=== PATIENT | female | born 1985 ===

== ENCOUNTER 2019-09-03 17:15 | Inpatient (IN) | payer BC ==
[2019-09-03] MEDS ORDERED: Sodium Chloride 0.9% 10 ML SDV IV PRN (23:30)
[2019-09-03] MEDS ORDERED: Butorphanol 1 MG/ML SDV IVPUSH PRN (23:30)
[2019-09-03] MEDS ORDERED: Oxytocin/0.9 % Sodium Chloride 30 UNIT/500 ML BAG IV SCH ×2 (23:30)
[2019-09-03] MEDS ORDERED: Sodium Chloride 0.9% 2.5 ML Syringe FLUSH PRN (23:30)
[2019-09-03] MEDS ORDERED: Tranexamic Acid 1,000 MG in Sodium Chloride 0.9% 100 ML IV PRN (23:30)
[2019-09-03] MEDS ORDERED: Lidocaine 1% 50 ML MDV INJECT PRN (23:30)
[2019-09-03] MEDS ORDERED: Misoprostol 25 MCG (1/4 of 100 MCG) Tab VAG PRN ×2 (23:30)
[2019-09-03] MEDS ORDERED: Water For Irrigation,Sterile 1,000 ML Container IRR PRN (23:30)
[2019-09-03] MEDS ORDERED: Sodium Chloride 0.9% 10 ML Syringe FLUSH PRN (23:30)
[2019-09-03] MEDS ORDERED: Carboprost Tromethamine 250 MCG/1 ML Amp IM PRN (23:30)
[2019-09-03] MEDS ORDERED: Misoprostol 200 MCG Tab PO PRN (23:30)
[2019-09-03] MEDS ORDERED: Methylergonovine 0.2 MG/1 ML Amp IM PRN (23:30)
[2019-09-03] MEDS ORDERED: Ondansetron 4 MG/2 ML SDV IVPUSH PRN (23:30)
[2019-09-03] MEDS ORDERED: Nalbuphine 10 MG/1 ML Vial IVPUSH PRN (23:30)
[2019-09-03] MEDS ORDERED: Terbutaline 1 MG/ML SDV SUBCUT PRN (23:30)
[2019-09-04] MEDS: Lactated Ringers 1,000 ML IV SCH ×2 (00:24→09:11)
[2019-09-04] MEDS ORDERED: fentaNYL 100 MCG/2 ML SDV ONE ×2 (08:41→10:52)
[2019-09-04] MEDS ORDERED: Ropivacaine HCl/PF 100 ML ONE (08:41)
--- NOTE | 2019-09-04 09:00 | PCM.PREANE ---
Preanesthetic Assessment - Anesthesia/Transfusion/Family Hx Anesthesia History: Prior Anesthesia Without Reaction Other Type of Anesthesia Reaction Comment: problems waking up Family History of Anesthesia Reaction: No Transfusion History: No Prior Transfusion(s) - Physical Assessment NPO Status Date: 09/04/19 NPO Status Time: 08:15 Height: 1.68 m Weight: 103.419 kg ASA Class: 1 - Lab Values: Laboratory Last Values WBC 7.99 K/uL (4.0-11.0) 09/04/19 00:15 RBC 4.32 M/uL (4.30-5.90) 09/04/19 00:15 Hgb 12.1 g/dL (12.0-16.0) 09/04/19 00:15 Hct 37.3 % (36.0-46.0) 09/04/19 00:15 MCV 86.3 fL (80.0-98.0) 09/04/19 00:15 MCH 28.0 pg (27.0-32.0) 09/04/19 00:15 MCHC 32.4 g/dL (31.0-37.0) 09/04/19 00:15 RDW Std Deviation 44.1 fl (28.0-62.0) 09/04/19 00:15 RDW Coeff of Natacha 14 % (11.0-15.0) 09/04/19 00:15 Plt Count 308 K/uL (150-400) 09/04/19 00:15 MPV 10.10 fL (7.40-12.00) 09/04/19 00:15 Nucleated RBC % 0.0 /100WBC 09/04/19 00:15 Nucleated RBCs # 0 K/uL 09/04/19 00:15 POC Glucose 70 mg/dL (60-110) 09/04/19 07:25 Blood Type O POSITIVE 09/04/19 00:15 Antibody Screen NEGATIVE 09/04/19 00:15 - Allergies Allergies/Adverse Reactions: Allergies Allergy/AdvReac Type Severity Reaction Status Date / Time adhesive Allergy Blisters Verified 07/17/19 03:25 aspirin Allergy Difficulty Verified 07/17/19 03:25 Breathing caffeine Allergy Cannot Verified 07/17/19 03:25 [From Excedrin Extra Remember Strength] cat dander Allergy Difficulty Verified 07/17/19 03:25 Breathing cephalexin Allergy Anaphylactic Verified 07/17/19 03:25 Shock chlorhexidine Allergy Hives Verified 07/17/19 03:27 dichloralphenazone Allergy Hives Verified 07/17/19 03:25 [From Midrin] ibuprofen Allergy Stomach Verified 07/17/19 03:25 Upset iodine Allergy Hives Verified 07/17/19 03:25 isometheptene [From Midrin] Allergy Hives Verified 07/17/19 03:25 methocarbamol Allergy Hives Verified 07/17/19 03:25 morphine Allergy Difficulty Verified 07/17/19 03:25 Breathing omeprazole Allergy Headache Verified 07/17/19 03:25 oxybutynin Allergy Hives Verified 07/17/19 03:25 oxycodone [From Percocet] Allergy Hives Verified 07/17/19 03:25 Penicillins Allergy Anaphylactic Verified 07/17/19 03:25 Shock povidone-iodine Allergy Hives Verified 07/17/19 03:25 [From Betadine] raspberry Allergy Hives Verified 07/17/19 03:25 soap [From Betadine] Allergy Hives Verified 07/17/19 03:25 strawberry Allergy Hives Verified 07/17/19 03:25 tamsulosin Allergy Hives Verified 07/17/19 03:25 Tetanus Vaccines and Toxoid Allergy Rash Verified 07/17/19 03:25 tramadol Allergy Hives Verified 07/17/19 03:25 tree nut [Pecans] Allergy Anaphylactic Verified 07/17/19 03:25 Shock walnut Allergy Anaphylactic Verified 07/17/19 03:25 Shock - Acknowledgements Anesthesia Type Planned: Epidural Pt an Appropriate Candidate for the Planned Anesthesia: Yes Alternatives and Risks of Anesthesia Discussed w Pt/Guardian: Yes Pt/Guardian Understands and Agrees with Anesthesia Plan: Yes PreAnesthesia Questionnaire HEENT History: Reports: Impaired Vision Respiratory History: Reports: Asthma Other Respiratory History: couple years since last asthma attack Genitourinary History: Reports: Renal Calculus [employer] History: Reports: Musculoskeletal History: Reports: Fracture Other Musculoskeletal History: left elbow, left knee, lower right leg Neurological History: Reports: Headaches, Chronic, Head Trauma, Migraines Endocrine/Metabolic History: Reports: Diabetes, Gestational, Hyperthyroidism, Hypothyroidism - Infectious Disease History Infectious Disease History: Reports: Chicken Pox - Past Surgical History HEENT Surgical History: Reports: Other (See Below) Other HEENT Surgeries/Procedures: migraines from head trauma GI Surgical History: Reports: Cholecystectomy Neurological Surgical History: Reports: Other (See Below) Other Neurological Surgeries/Procedures: collapsed disc between L3-L4 - SUBSTANCE USE Smoking Status *Q: Former Smoker Tobacco Use Within Last Twelve Months: Cigarettes Second Hand Smoke Exposure: Yes Recreational Drug Use History: No - HOME MEDS Home Medications: Home Meds Pnv No.95/Ferrous Fum/Folic AC [ Tablet] 1 tab PO DAILY 07/17/19 [ History] Magnesium 1 tab PO PRN 08/27/19 [History] Melatonin [Melatin] 1 tab PO DAILY 08/27/19 [History] - CURRENT (IN HOUSE) MEDS Current Meds: Current Medications Butorphanol Tartrate (Stadol) 1 mg IVPUSH Q1H PRN PRN Reason: Pain Carboprost Tromethamine (Hemabate Ds) 250 mcg IM ASDIRECTED PRN PRN Reason: Post Hemorrhage Lactated Ringer's (Ringers, Lactated) 1,000 mls @ 150 mls/hr IV ASDIRECTED MONY Last Admin: 09/04/19 00:24 Dose: 150 mls/hr Oxytocin/Sodium Chloride (Oxytocin 30 Unit/500 Ml-Ns) 30 unit in 500 mls @ 500 mls/hr IV TITRATE MONY Oxytocin/Sodium Chloride (Oxytocin 30 Unit/500 Ml-Ns) 30 unit in 500 mls @ 2 mls/hr IV TITRATE MONY; Protocol Tranexamic Acid 1,000 mg/ (Sodium Chloride) 110 mls @ 660 mls/hr IV ONETIME PRN PRN Reason: Bleeding Lidocaine HCl (Xylocaine 1%) 50 ml INJECT ONETIME PRN PRN Reason: Laceration repair Methylergonovine Maleate (Methergine) 0.2 mg IM ASDIRECTED PRN PRN Reason: Post Hemorrhage Misoprostol (Cytotec) 200 mcg PO ONETIME PRN PRN Reason: Post Hemorrhage Misoprostol (Cytotec) 25 mcg VAG ONETIME PRN PRN Reason: Cervical Ripening Last Admin: 09/04/19 01:06 Dose: 25 mcg Misoprostol (Cytotec) 25 mcg VAG Q6H PRN PRN Reason: Cervical Ripening Nalbuphine HCl (Nubain) 10 mg IVPUSH Q1H PRN PRN Reason: Pain (severe 7-10) Ondansetron HCl (Zofran) 4 mg IVPUSH Q6H PRN PRN Reason: Nausea/Vomiting Sodium Chloride (Saline Flush) 10 ml FLUSH ASDIRECTED PRN PRN Reason: Keep Vein Open Sodium Chloride (Saline Flush) 2.5 ml FLUSH ASDIRECTED PRN PRN Reason: Keep Vein Open Sodium Chloride (Normal Saline) 10 ml IV ASDIRECTED PRN PRN Reason: IV Use Sterile Water (Sterile Water For Irrigation) 1,000 ml IRR ASDIRECTED PRN PRN Reason: delivery Terbutaline Sulfate (Brethine) 0.25 mg SUBCUT ASDIRECTED PRN PRN Reason: Tacysystole Discontinued Medications Fentanyl (Sublimaze) Confirm Administered Dose 100 mcg .ROUTE .STK-MED ONE Stop: 09/04/19 08:42 Ropivacaine (Naropin 0.2%) Confirm Administered Dose 100 mls @ as directed .ROUTE .STK-MED ONE Stop: 09/04/19 08:42
--- NOTE | 2019-09-04 09:04 | PCM.PRNOTE ---
- Free Text/Narrative Note: Anes Note Patient requests epidural for L&D. Sitting position. Level L3-L4 midline approach. Sterile technique, chloraprep scrub to lumbar area. Sterile fenestrated drape applied. Epidural space easily achieved single attempt with ease using CHRISTIANA technique. CHRISTIANA at 4 cm. cath threaded 5 cm with ease. Cath secured at 10 cm at skin using sterile clear adhesive dressing. 0847 Test 3 cc 1.5% lido with epi negative. 0850 Load 10 cc 0.2% ropiviciane with 1 mcg cc fentanyl in slow divided doses. 0855 Pump started with 90 cc same solution. Rate is 8 cc hr with 6 cc q 20 min prn bolus. Robyn well. 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
--- NOTE | 2019-09-04 11:27 | PCM.PRNOTE ---
- Free Text/Narrative Note: Anes Note Patient reports incomplete analgesia An excellent T10 sensory change was noted by assessment. However, the patient reports discomfort in the sacral area during contraction. A sitting dose of 100 mcg fentanyl and 6 cc 2% lido with epi was administered. Time with patient [id number] Marco Rivers CRNA
[2019-09-04] MEDS ORDERED: Acetaminophen 500 MG Tab PO ONE (13:22)
[2019-09-04] MEDS ORDERED: Bupivacaine 0.25% 10 ML SDV ONE (14:55)
--- NOTE | 2019-09-04 15:03 | PCM.SN.2 ---
- Free Text/Narrative Note: Making good progress, c/o increasing sacral pain. will give 10 ml of 0.25% bupivicaine.
[2019-09-04] MEDS ORDERED: Dextrose 5%-Ringers 1,000 ML IV SCH (15:30)
[2019-09-04] MEDS ORDERED: Dextrose 5%-Lactated Ringers 1,000 ML IV SCH (15:45)
[2019-09-04] MEDS ORDERED: Bupivicaine/fentaNYL/NS 250 ML ONE (16:13)
--- NOTE | 2019-09-04 16:26 | PCM.SN.2 ---
- Free Text/Narrative Note: bag nearing empty. Air in line alarm. Changed to new bag and new epidural tubing. Pt pushing. no comps.
--- NOTE | 2019-09-04 17:57 | PCM.DEL ---
L & D Note - General Info Date of Service: 09/04/19 Mother's Due Date: 09/08/19 - Delivery Note Labor: Augmented by Oxytocin, Induced by ARM Cervical Ripening Method: Misoprostil Delivery Outcome: Livebirth Delivery Method: Spontaneous Vaginal Delivery-Single Presentation: Left Occiput Anterior (AJ) Nuchal Cord: None Prep: Other Anesthesia Type: Epidural Amniotic Fluid Description: terminal meconium Episiotomy Type: None Laceration: Vaginal Suture type: Vicryl Suture size: 3-0 Placenta: Intact, Spontaneous Cord: 3 Vessels Resuscitation Needed: Yes : Suctioned Score 1 min: 8 Score 5 min: 9 Delivery Comments (Free Text/Narrative):: Liveborn male, 8/9, placenta spontaneous, Schultze, intact - General Info Date of Service: 09/04/19 - Patient Data Weight - Most Recent: 103.419 kg Lab Results Last 24 Hours: Laboratory Results - last 24 hr 09/04/19 09/04/19 09/04/19 Range/Units 00:15 00:15 07:25 WBC 7.99 (4.0-11.0) K/uL RBC 4.32 (4.30-5.90) M/uL Hgb 12.1 (12.0-16.0) g/dL Hct 37.3 (36.0-46.0) % MCV 86.3 (80.0-98.0) fL MCH 28.0 (27.0-32.0) pg MCHC 32.4 (31.0-37.0) g/dL RDW Std Deviation 44.1 (28.0-62.0) fl RDW Coeff of Natacha 14 (11.0-15.0) % Plt Count 308 (150-400) K/uL MPV 10.10 (7.40-12.00) fL Nucleated RBC % 0.0 /100WBC Nucleated RBCs # 0 K/uL POC Glucose 70 (60-110) mg/dL Blood Type O POSITIVE Antibody Screen NEGATIVE 09/04/19 09/04/19 09/04/19 Range/Units 09:34 12:03 14:59 WBC (4.0-11.0) K/uL RBC (4.30-5.90) M/uL Hgb (12.0-16.0) g/dL Hct (36.0-46.0) % MCV (80.0-98.0) fL MCH (27.0-32.0) pg MCHC (31.0-37.0) g/dL RDW Std Deviation (28.0-62.0) fl RDW Coeff of Natacha (11.0-15.0) % Plt Count (150-400) K/uL MPV (7.40-12.00) fL Nucleated RBC % /100WBC Nucleated RBCs # K/uL POC Glucose 96 74 58 L (60-110) mg/dL Blood Type Antibody Screen 09/04/19 Range/Units 16:01 WBC (4.0-11.0) K/uL RBC (4.30-5.90) M/uL Hgb (12.0-16.0) g/dL Hct (36.0-46.0) % MCV (80.0-98.0) fL MCH (27.0-32.0) pg MCHC (31.0-37.0) g/dL RDW Std Deviation (28.0-62.0) fl RDW Coeff of Natacha (11.0-15.0) % Plt Count (150-400) K/uL MPV (7.40-12.00) fL Nucleated RBC % /100WBC Nucleated RBCs # K/uL POC Glucose 93 (60-110) mg/dL Blood Type Antibody Screen Med Orders - Current: Current Medications Butorphanol Tartrate (Stadol) 1 mg IVPUSH Q1H PRN PRN Reason: Pain Carboprost Tromethamine (Hemabate Ds) 250 mcg IM ASDIRECTED PRN PRN Reason: Post Hemorrhage Lactated Ringer's (Ringers, Lactated) 1,000 mls @ 150 mls/hr IV ASDIRECTED MONY Last Admin: 09/04/19 09:11 Dose: 150 mls/hr Oxytocin/Sodium Chloride (Oxytocin 30 Unit/500 Ml-Ns) 30 unit in 500 mls @ 500 mls/hr IV TITRATE MONY Oxytocin/Sodium Chloride (Oxytocin 30 Unit/500 Ml-Ns) 30 unit in 500 mls @ 2 mls/hr IV TITRATE MONY; Protocol Last Admin: 09/04/19 16:18 Dose: 2 munits/min, 2 mls/hr Tranexamic Acid 1,000 mg/ (Sodium Chloride) 110 mls @ 660 mls/hr IV ONETIME PRN PRN Reason: Bleeding Dextrose/Ringer's (Dextrose 5%-Ringers) 1,000 mls @ 150 mls/hr IV ASDIRECTED [facility] Dextrose/Lactated Ringer's (Dextrose 5%-Lactated Ringers) 1,000 mls @ 150 mls/ hr IV ASDIRECTED [facility] Last Admin: 09/04/19 15:30 Dose: 150 mls/hr Lidocaine HCl (Xylocaine 1%) 50 ml INJECT ONETIME PRN PRN Reason: Laceration repair Methylergonovine Maleate (Methergine) 0.2 mg IM ASDIRECTED PRN PRN Reason: Post Hemorrhage Misoprostol (Cytotec) 200 mcg PO ONETIME PRN PRN Reason: Post Hemorrhage Misoprostol (Cytotec) 25 mcg VAG ONETIME PRN PRN Reason: Cervical Ripening Last Admin: 09/04/19 01:06 Dose: 25 mcg Misoprostol (Cytotec) 25 mcg VAG Q6H PRN PRN Reason: Cervical Ripening Nalbuphine HCl (Nubain) 10 mg IVPUSH Q1H PRN PRN Reason: Pain (severe 7-10) Ondansetron HCl (Zofran) 4 mg IVPUSH Q6H PRN PRN Reason: Nausea/Vomiting Sodium Chloride (Saline Flush) 10 ml FLUSH ASDIRECTED PRN PRN Reason: Keep Vein Open Sodium Chloride (Saline Flush) 2.5 ml FLUSH ASDIRECTED PRN PRN Reason: Keep Vein Open Sodium Chloride (Normal Saline) 10 ml IV ASDIRECTED PRN PRN Reason: IV Use Sterile Water (Sterile Water For Irrigation) 1,000 ml IRR ASDIRECTED PRN PRN Reason: delivery Terbutaline Sulfate (Brethine) 0.25 mg SUBCUT ASDIRECTED PRN PRN Reason: Tacysystole Discontinued Medications Acetaminophen (Tylenol Extra Strength) 1,000 mg PO ONETIME ONE Stop: 09/04/19 13:23 Last Admin: 09/04/19 13:35 Dose: 1,000 mg Bupivacaine HCl (Sensorcaine-Mpf 0.25%) Confirm Administered Dose 10 ml .ROUTE .STK-MED ONE Stop: 09/04/19 14:56 Fentanyl (Sublimaze) Confirm Administered Dose 100 mcg .ROUTE .STK-MED ONE Stop: 09/04/19 08:42 Fentanyl (Sublimaze) Confirm Administered Dose 100 mcg .ROUTE .STK-MED ONE Stop: 09/04/19 10:53 Ropivacaine (Naropin 0.2%) Confirm Administered Dose 100 mls @ as directed .ROUTE .STK-MED ONE Stop: 09/04/19 08:42 Fentanyl/Bupivacaine HCl (Fentanyl/Bupivacaine/Ns 2 Mcg-0.125% 250 Ml) Confirm Administered Dose 250 mls @ as directed .ROUTE .STK-MED ONE Stop: 09/04/19 16:14 - Problem List & Annotations (1) Vaginal delivery SNOMED Code(s): 648751738 Code(s): O80 - ENCOUNTER FOR FULL-TERM UNCOMPLICATED DELIVERY Status: Acute Current Visit: Yes - Problem List Review Problem List Initiated/Reviewed/Updated: Yes - My Orders Last 24 Hours: My Active Orders 09/03/19 23:30 Patient Status [ADT] Routine Bedrest Bathroom Privileges [RC] ASDIRECTED Communication Order [RC] ASDIRECTED Communication Order [RC] ASDIRECTED Communication Order [RC] ASDIRECTED May Shower [RC] ASDIRECTED Notify Provider [RC] PRN Notify Provider [RC] PRN Notify Provider [RC] PRN Notify Provider [RC] STAT Oxygen Therapy [RC] ASDIRECTED Up ad Zulema [RC] ASDIRECTED Vital Signs [RC] PER UNIT ROUTINE Vital Signs [RC] PER UNIT ROUTINE RPR (SYPHILIS SERO) W/ RFLX [REF] Routine Butorphanol [Stadol] 1 mg IVPUSH Q1H PRN Carboprost Tromethamine [Hemabate DS] 250 mcg IM ASDIRECTED PRN Lactated Ringers [Ringers, Lactated] 1,000 ml IV ASDIRECTED Lidocaine 1% [Xylocaine 1%] 50 ml INJECT ONETIME PRN Methylergonovine [Methergine] 0.2 mg IM ASDIRECTED PRN Nalbuphine [Nubain] 10 mg IVPUSH Q1H PRN Ondansetron [Zofran] 4 mg IVPUSH Q6H PRN Oxytocin/0.9 % Sodium Chloride [Oxytocin 30 Unit/500 ML-NS] 30 unit in 500 ml IV TITRATE Oxytocin/0.9 % Sodium Chloride [Oxytocin 30 Unit/500 ML-NS] 30 unit in 500 ml IV TITRATE Sodium Chloride 0.9% [Normal Saline] 10 ml IV ASDIRECTED PRN Sodium Chloride 0.9% [Saline Flush] 10 ml FLUSH ASDIRECTED PRN Sodium Chloride 0.9% [Saline Flush] 2.5 ml FLUSH ASDIRECTED PRN Terbutaline [Brethine] 0.25 mg SUBCUT ASDIRECTED PRN Tranexamic Acid [Cyklokapron] 1,000 mg Sodium Chloride 0.9% [Normal Saline] 100 ml IV ONETIME Water For Irrigation,Sterile [Sterile Water for Irrigation] 1,000 ml IRR ASDIRECTED PRN miSOPROStoL [Cytotec] 200 mcg PO ONETIME PRN miSOPROStoL [Cytotec] 25 mcg VAG ONETIME PRN miSOPROStoL [Cytotec] 25 mcg VAG Q6H PRN Scalp Electrode [WOMSER] Per Unit Routine Medication Administration Instruction [OM.PC] Q3H Peripheral IV Insertion Adult [OM.PC] Routine Resuscitation Status Routine 09/03/19 23:37 Blood Glucose Check, Bedside [RC] Q2H 09/04/19 15:30 Dextrose 5%-Ringers 1,000 ml IV ASDIRECTED 09/04/19 15:45 Dextrose 5%-Lactated Ringers 1,000 ml IV ASDIRECTED 09/04/19 Breakfast Clear Liquid Diet [DIET]
[2019-09-04] MEDS ORDERED: Acetaminophen 500 MG Tab PO PRN (17:58)
[2019-09-04] MEDS ORDERED: Benzocaine/Menthol 20%-0.5% Spray 78 GM Cannister TOP PRN (17:58)
[2019-09-04] MEDS ORDERED: Bisacodyl 10 MG Supp RECTAL PRN (17:58)
[2019-09-04] MEDS ORDERED: Methylergonovine 0.2 MG/1 ML Amp IM PRN (17:58)
[2019-09-04] MEDS ORDERED: Lanolin 100% Cream 7 GM Tube TOP PRN (17:58)
--- NOTE | 2019-09-04 18:34 | OR ---
SURGEON: Chio Chavez M.D. DATE OF PROCEDURE: 09/04/2019 PREOPERATIVE DIAGNOSES: A 39-3/7 weeks' intrauterine , gestational diabetes. POSTOPERATIVE DIAGNOSES: A 39-3/7 weeks' intrauterine , gestational diabetes. PROCEDURES: Cytotec induction of labor, artificial rupture of membranes, Pitocin augmentation, term spontaneous vaginal delivery, repair of vaginal laceration. PRIMARY SURGEON: Chio Chavez MD ANESTHESIA: Epidural. ESTIMATED BLOOD LOSS: Less than 300 mL. FINDINGS: Liveborn male. score of 8 and 9. Weight is pending. Placenta spontaneous, Schultze intact, with 3 vessels. Perineum intact. Small right vaginal laceration, repaired. COMPLICATIONS: None known. DISPOSITION: Mother and baby are in LDR in good condition. BRIEF HISTORY: This is a 33-year-old female. She is G1, P0, presents at 39-3/7 weeks' gestation for induction of labor. She received 2 doses of Cytotec. At this point, she was 5 cm dilated. She had artificial rupture of membranes. When she was 3 cm dilated, she received an epidural for pain control. She progressed to complete. However, with the epidural, the contractions spaced out. She received up to 2 milliunits per minute of Pitocin for augmentation. DESCRIPTION OF PROCEDURE: With the patient in dorsal lithotomy position, the patient pushed over approximately 1 hour time-period to a 5+ station at which time the head was delivered spontaneously and atraumatically over the perineum with support with subsequent delivery of the 's shoulders and body without any difficulty. The infant was bulb suctioned by nose and mouth, and after the cord had ceased to pulsate, it was doubly clamped and cut. The was handed to the mother in the presence of the nurse attending delivery. The infant was a liveborn male. score of 8 and 9. Weight is pending. Pitocin was initiated after delivery of the to assist with delivery of the placenta, which was delivered spontaneously, Schultze intact, with 3 vessels. Upon inspection of the pelvis and perineum, there were no periurethral, vaginal sidewall, cervical, rectal, or perineal lacerations. There was a small lower vaginal laceration, repaired with 3 running lock stitches of 3-0 Vicryl. Final sponge, needle, and instrument counts were correct. There were no known complications. Mother and baby are in LDR in good condition. AYAAN DE LA PAZ /[id number]
[2019-09-04] MEDS: Witch Hazel Medicated Pads 40/Jar TOP PRN (20:09)
[2019-09-04] MEDS: Docusate Sodium 100 MG Cap PO PRN (20:10)
[2019-09-05] MEDS: Acetaminophen 500 MG Tab PO PRN ×4 (03:51→18:27)
[2019-09-05 06:25] LABS: BLOOD UREA NITROGEN,BUN 13 mg/dL (7.0-18.0); CARBON DIOXIDE,CO2 23.3 mmol/L (21.0-32.0); CHLORIDE,CL 106 mmol/L (98-107); GLUCOSE RANDOM 80 mg/dL (74-106); POTASSIUM,K 3.4 mmol/L (3.5-5.1); SODIUM,NA 139 mmol/L (136-145)
--- NOTE | 2019-09-05 07:45 | PCM48HPAN ---
Post Anesthesia Note - EVALUATION WITHIN 48HRS OF ANESTHETIC Vital Signs in Normal Range: Yes Patient Participated in Evaluation: Yes Respiratory Function Stable: Yes Airway Patent: Yes Cardiovascular Function Stable: Yes Hydration Status Stable: Yes Pain Control Satisfactory: Yes Nausea and Vomiting Control Satisfactory: Yes Mental Status Recovered: Yes Vital Signs: Last Vital Signs Temp 36.5 C 09/05/19 04:38 Pulse 82 09/05/19 04:38 Resp 18 09/05/19 04:38 BP 121/65 09/05/19 04:38 Pulse Ox 95 09/05/19 04:38 - COMMENTS/OBSERVATIONS Free Text/Narrative:: Doing well. No problems noted
--- NOTE | 2019-09-05 08:46 | PCM.PNPP ---
- General Info Date of Service: 09/05/19 Functional Status: Reports: Pain Controlled, Tolerating Diet, Ambulating, Urinating - Review of Systems General: Reports: No Symptoms HEENT: Reports: No Symptoms Pulmonary: Reports: No Symptoms Cardiovascular: Reports: No Symptoms Gastrointestinal: Reports: No Symptoms Genitourinary: Reports: No Symptoms Musculoskeletal: Reports: No Symptoms Skin: Reports: No Symptoms Neurological: Reports: No Symptoms Psychiatric: Reports: No Symptoms - Patient Data Vital Signs - Most Recent: Last Vital Signs Temp 36.5 C 09/05/19 04:38 Pulse 82 09/05/19 04:38 Resp 18 09/05/19 04:38 BP 121/65 09/05/19 04:38 Pulse Ox 95 09/05/19 04:38 Weight - Most Recent: 103.419 kg Lab Results - Last 24 Hours: Laboratory Results - last 24 hr 09/04/19 09/04/19 09/04/19 Range/Units 09:34 12:03 14:59 Hgb (12.0-16.0) g/dL Hct (36.0-46.0) % Cord ABG pH (7.18-7.38) Cord ABG Base Excess (-10--2) Cord VBG pH (7.25-7.45) Cord VBG Base Excess (-10--2) Sodium (136-145) mmol/L Potassium (3.5-5.1) mmol/L Chloride (98-107) mmol/L Carbon Dioxide (21.0-32.0) mmol/L BUN (7.0-18.0) mg/dL Creatinine (0.6-1.0) mg/dL Est Cr Clr Drug Dosing mL/min Estimated GFR (MDRD) ml/min Glucose (74-106) mg/dL POC Glucose 96 74 58 L (60-110) mg/dL Calcium (8.5-10.1) mg/dL 09/04/19 09/04/19 09/05/19 Range/Units 16:01 17:15 05:40 Hgb 10.7 L (12.0-16.0) g/dL Hct 32.7 L (36.0-46.0) % Cord ABG pH 7.112 L (7.18-7.38) Cord ABG Base Excess -15 L (-10--2) Cord VBG pH 7.139 L (7.25-7.45) Cord VBG Base Excess -13 L (-10--2) Sodium (136-145) mmol/L Potassium (3.5-5.1) mmol/L Chloride (98-107) mmol/L Carbon Dioxide (21.0-32.0) mmol/L BUN (7.0-18.0) mg/dL Creatinine (0.6-1.0) mg/dL Est Cr Clr Drug Dosing mL/min Estimated GFR (MDRD) ml/min Glucose (74-106) mg/dL POC Glucose 93 (60-110) mg/dL Calcium (8.5-10.1) mg/dL 09/05/19 Range/Units 05:40 Hgb (12.0-16.0) g/dL Hct (36.0-46.0) % Cord ABG pH (7.18-7.38) Cord ABG Base Excess (-10--2) Cord VBG pH (7.25-7.45) Cord VBG Base Excess (-10--2) Sodium 139 (136-145) mmol/L Potassium 3.4 L (3.5-5.1) mmol/L Chloride 106 (98-107) mmol/L Carbon Dioxide 23.3 (21.0-32.0) mmol/L BUN 13 (7.0-18.0) mg/dL Creatinine 0.9 (0.6-1.0) mg/dL Est Cr Clr Drug Dosing 81.67 mL/min Estimated GFR (MDRD) > 60.0 ml/min Glucose 80 (74-106) mg/dL POC Glucose (60-110) mg/dL Calcium 8.1 L (8.5-10.1) mg/dL Med Orders - Current: Current Medications Acetaminophen (Tylenol Extra Strength) 500 mg PO Q4H PRN PRN Reason: Pain Last Admin: 09/05/19 03:51 Dose: 500 mg Acetaminophen (Tylenol Extra Strength) 1,000 mg PO Q4H PRN PRN Reason: Pain Last Admin: 09/04/19 20:10 Dose: 1,000 mg Benzocaine/Menthol (Dermoplast Pain Relief 20%-0.5% [place]) 0 gm TOP ASDIRECTED PRN PRN Reason: Perineal Comfort Measure Last Admin: 09/04/19 20:09 Dose: 1 spray Bisacodyl (Dulcolax) 10 mg RECTAL ONETIME PRN PRN Reason: Constipation Docusate Sodium (Colace) 100 mg PO BID PRN PRN Reason: Constipation Last Admin: 09/04/19 20:10 Dose: 100 mg Emollient Ointment (Lansinoh Hpa) 0 gm TOP ASDIRECTED PRN PRN Reason: Sore Nipples Last Admin: 09/04/19 20:11 Dose: 1 gm Methylergonovine Maleate (Methergine) 0.2 mg IM ONETIME PRN PRN Reason: Excessive Vaginal Bleeding Witch [place] (Tucks) 1 pad TOP ASDIRECTED PRN PRN Reason: comfort care Last Admin: 09/04/19 20:09 Dose: 1 gm Discontinued Medications Acetaminophen (Tylenol Extra Strength) 1,000 mg PO ONETIME ONE Stop: 09/04/19 13:23 Last Admin: 09/04/19 13:35 Dose: 1,000 mg Bupivacaine HCl (Sensorcaine-Mpf 0.25%) Confirm Administered Dose 10 ml .ROUTE .STK-MED ONE Stop: 09/04/19 14:56 Last Admin: 09/05/19 00:04 Dose: Not Given Butorphanol Tartrate (Stadol) 1 mg IVPUSH Q1H PRN PRN Reason: Pain Carboprost Tromethamine (Hemabate Ds) 250 mcg IM ASDIRECTED PRN PRN Reason: Post Hemorrhage Fentanyl (Sublimaze) Confirm Administered Dose 100 mcg .ROUTE .STK-MED ONE Stop: 09/04/19 08:42 Last Admin: 09/05/19 00:04 Dose: Not Given Fentanyl (Sublimaze) Confirm Administered Dose 100 mcg .ROUTE .STK-MED ONE Stop: 09/04/19 10:53 Last Admin: 09/05/19 00:04 Dose: Not Given Lactated Ringer's (Ringers, Lactated) 1,000 mls @ 150 mls/hr IV ASDIRECTED MONY Last Admin: 09/04/19 09:11 Dose: 150 mls/hr Oxytocin/Sodium Chloride (Oxytocin 30 Unit/500 Ml-Ns) 30 unit in 500 mls @ 500 mls/hr IV TITRATE MONY Oxytocin/Sodium Chloride (Oxytocin 30 Unit/500 Ml-Ns) 30 unit in 500 mls @ 2 mls/hr IV TITRATE MONY; Protocol Last Admin: 09/04/19 16:18 Dose: 2 munits/min, 2 mls/hr Tranexamic Acid 1,000 mg/ (Sodium Chloride) 110 mls @ 660 mls/hr IV ONETIME PRN PRN Reason: Bleeding Ropivacaine (Naropin 0.2%) Confirm Administered Dose 100 mls @ as directed .ROUTE .[facility] ONE Stop: 09/04/19 08:42 Last Admin: 09/05/19 00:02 Dose: Not Given Dextrose/Ringer's (Dextrose 5%-Ringers) 1,000 mls @ 150 mls/hr IV ASDIRECTED MONY Dextrose/Lactated Ringer's (Dextrose 5%-Lactated Ringers) 1,000 mls @ 150 mls/ hr IV ASDIRECTED MONY Last Admin: 09/04/19 15:30 Dose: 150 mls/hr Fentanyl/Bupivacaine HCl (Fentanyl/Bupivacaine/Ns 2 Mcg-0.125% 250 Ml) Confirm Administered Dose 250 mls @ as directed .ROUTE .[facility] ONE Stop: 09/04/19 16:14 Last Admin: 09/05/19 00:05 Dose: Not Given Lidocaine HCl (Xylocaine 1%) 50 ml INJECT ONETIME PRN PRN Reason: Laceration repair Methylergonovine Maleate (Methergine) 0.2 mg IM ASDIRECTED PRN PRN Reason: Post Hemorrhage Misoprostol (Cytotec) 200 mcg PO ONETIME PRN PRN Reason: Post Hemorrhage Misoprostol (Cytotec) 25 mcg VAG ONETIME PRN PRN Reason: Cervical Ripening Last Admin: 09/04/19 01:06 Dose: 25 mcg Misoprostol (Cytotec) 25 mcg VAG Q6H PRN PRN Reason: Cervical Ripening Nalbuphine HCl (Nubain) 10 mg IVPUSH Q1H PRN PRN Reason: Pain (severe 7-10) Ondansetron HCl (Zofran) 4 mg IVPUSH Q6H PRN PRN Reason: Nausea/Vomiting Sodium Chloride (Saline Flush) 10 ml FLUSH ASDIRECTED PRN PRN Reason: Keep Vein Open Sodium Chloride (Saline Flush) 2.5 ml FLUSH ASDIRECTED PRN PRN Reason: Keep Vein Open Sodium Chloride (Normal Saline) 10 ml IV ASDIRECTED PRN PRN Reason: IV Use Sterile Water (Sterile Water For Irrigation) 1,000 ml IRR ASDIRECTED PRN PRN Reason: delivery Terbutaline Sulfate (Brethine) 0.25 mg SUBCUT ASDIRECTED PRN PRN Reason: Tacysystole - Interaction Disposition, : [place] in Room with Family Infant Interaction: Holding Infant Infant Feeding: Breastfed Infant; Nursed Well Support Person: Significant Other - Recovery Exam Fundal Tone: Firm Fundal Level: 1 Fingerbreadths Below Umbilicus Fundal Placement: Midline Lochia Amount: Small Lochia Color: Rubra/Red Perineum Description: Edematous Bladder Status: Voiding Urinary Elimination: Voided, Other (see below) Other Urinary Elimination, : Voided in bed as legs still numb from epidural - Exam General: Alert, Oriented HEENT: Pupils Equal Neck: Supple Lungs: Normal Respiratory Effort GI/Abdominal Exam: Soft, Non-Tender, No Organomegaly, No Distention Extremities: Normal Inspection, Non-Tender. No: No Pedal Edema (1+ equal bilaterally) Skin: Warm, Dry, Intact Neurological: No New Focal Deficit Psy/Mental Status: Alert, Normal Affect, Normal Mood - Problem List & Annotations (1) Vaginal delivery SNOMED Code(s): 612465407 Code(s): O80 - ENCOUNTER FOR FULL-TERM UNCOMPLICATED DELIVERY Status: Acute Current Visit: Yes - Problem List Review Problem List Initiated/Reviewed/Updated: Yes - My Orders Last 24 Hours: My Active Orders 09/04/19 17:58 Patient Status [ADT] Routine May Shower [RC] ASDIRECTED Up ad Zulema [RC] ASDIRECTED Vital Signs [RC] PER UNIT ROUTINE Acetaminophen [Tylenol Extra Strength] 1,000 mg PO Q4H PRN Acetaminophen [Tylenol Extra Strength] 500 mg PO Q4H PRN Benzocaine/Menthol [Dermoplast Pain Relief 20%-0.5% [place]] 0 gm TOP ASDIRECTED PRN Docusate Sodium [Colace] 100 mg PO BID PRN Lanolin [Lansinoh HPA] See Dose Instructions TOP ASDIRECTED PRN Methylergonovine [Methergine] 0.2 mg IM ONETIME PRN bisacodyL [Dulcolax] 10 mg RECTAL ONETIME PRN s[place] [Tucks] 1 pad TOP ASDIRECTED PRN Assess Lochia [WOMSER] Per Unit Routine Assess Uterine Involution [WOMSER] Per Unit Routine Peripheral IV Discontinue [OM.PC] Routine Resuscitation Status Routine 09/04/19 18:00 Perineal Care [OM.PC] Per Unit Routine 09/05/19 08:44 Ready for Discharge [RC] PER UNIT ROUTINE 09/05/19 Breakfast Regular Diet [DIET] - Assessment Assessment:: PPD#1 after Stable minimal lochia, tolerating diet. Would like to go home when 24hours . Glucose this am is normal. - Plan Plan:: Discharge instructions reviewed. Will need 2 hour Glucose tolerance test at 6 weeks .
[2019-09-05] MEDS: Docusate Sodium 100 MG Cap PO PRN (09:19)
[2019-09-05] MEDS: Witch Hazel Medicated Pads 40/Jar TOP PRN (09:20)
== END 2019-09-05 22:00 | disposition home or self-care (01) | DRG 560 ==
LOC: MW.OB 17:15 → OBSVTOIN 09-04 17:15 → MW.OB 09-05 01:00
PROVIDERS: ADMIT Obstetrics & Gynecology; ATTEND Obstetrics & Gynecology
PROC: 10E0XZZ Delivery of Products of Conception, External Approach (ICD-10-PCS; principal; 2019-09-04)
PROC: 10907ZC Drainage of Amniotic Fluid, Therapeutic from Products of Conception, Via Natural or Artificial Opening (ICD-10-PCS; 2019-09-04)
PROC: 0UQGXZZ Repair Vagina, External Approach (ICD-10-PCS; 2019-09-04)
PROC: 3E0R3BZ Introduction of Anesthetic Agent into Spinal Canal, Percutaneous Approach (ICD-10-PCS; 2019-09-04)
PROC: 00HU33Z Insertion of Infusion Device into Spinal Canal, Percutaneous Approach (ICD-10-PCS; 2019-09-04)
DX: O24.420 Gestational diabetes mellitus in childbirth, diet controlled (principal); O71.4 Obstetric high vaginal laceration alone; Z3A.39 39 weeks gestation of pregnancy; Z37.0 Single live birth
CPT/HCPCS: 36415; 51702; 59025; 59409; 80048; 82803; 82962; 85014; 85018; 85027; 86592; 86593; 86850; 86900; 86901; A9270-GY; J2590; J7120; J7121